=== PATIENT | female | born 2000 | race Caucasian/White ===

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

== ENCOUNTER → 2024-05-03 12:34 | Outpatient (BNVA) | payer OTHER, SELFPAY | PROVIDERS: Visit Provider Physician Assistant Medical | DX: S63.501A Unspecified sprain of right wrist, initial encounter (principal); S80.02XA Contusion of left knee, initial encounter; W01.0XXA Fall on same level from slipping, tripping and stumbling without subsequent striking against object, initial encounter | CPT/HCPCS: 73110; 73130; 73564; 99203 ==

== ENCOUNTER → 2024-05-10 15:19 | Outpatient (BNVA) | payer OTHER, SELFPAY | PROVIDERS: Visit Provider Physician Assistant Medical | DX: S63.501A Unspecified sprain of right wrist, initial encounter (principal); W01.0XXA Fall on same level from slipping, tripping and stumbling without subsequent striking against object, initial encounter | CPT/HCPCS: 99213 ==

== ENCOUNTER 2024-05-27 19:50 | Outpatient (REF) | payer OTHER, SELFPAY ==
--- NOTE | ~2024-05-27 | MR_ITS ---
EXAMINATION: MR WRIST WITHOUT CONTRAST, RIGHT CLINICAL INFORMATION: Right wrist pain. Reduced range of motion. Numbness. Injury on 05/01/2024. COMPARISON: Right hand and wrist radiographs dated 05/03/2024. TECHNIQUE: MRI of the wrist was performed using routine sequences on a high-field scanner. FINDINGS: TRIANGULAR FIBROCARTILAGE: Intact. INTRINSIC LIGAMENTS: Focal full-thickness tear through the scaphoid attachment of the scapholunate ligament measuring 0.1 cm in ML dimension. Mild joint space widening measuring up to 0.3 cm in mL dimension. Intact lunotriquetral ligament. TENDONS/MEDIAN NERVE: Mild extensor carpi ulnaris tendinosis. No transverse tendon tear or tendon retraction. Unremarkable median nerve. ARTICULAR CARTILAGE/BONE: Degenerative cystic change within the volar aspect of the capitate. No acute fracture or dislocation. No concerning lytic or blastic osseous lesion. JOINT FLUID/SOFT TISSUES: Within normal limits. MR/MR wrist RT wo con IMPRESSION: 1. Full-thickness tear through the scaphoid attachment of the scapholunate ligament with mild joint space widening. 2. Mild extensor carpi ulnaris tendinosis without a transverse tendon tear or tendon retraction. 3. Degenerative cystic change within the volar aspect of the capitate. No acute fracture or dislocation. Electronically signed by: Aaron Silva MD 06/08/2024 01:30 PM [facility]
== END 2024-05-27 19:51 | disposition home or self-care (01) ==
LOC: HO.MRI 19:50
PROVIDERS: Visit Provider Internal Medicine
DX: S69.91XA Unspecified injury of right wrist, hand and finger(s), initial encounter (principal)
CPT/HCPCS: 73221

== ENCOUNTER → 2024-05-31 15:06 | Outpatient (BNVA) | payer OTHER, SELFPAY | PROVIDERS: Visit Provider Physician Assistant Medical | DX: S63.501D Unspecified sprain of right wrist, subsequent encounter (principal); S80.02XD Contusion of left knee, subsequent encounter; W01.0XXD Fall on same level from slipping, tripping and stumbling without subsequent striking against object, subsequent encounter | CPT/HCPCS: 99213 ==

== ENCOUNTER 2024-06-13 12:24 | Outpatient (REF) | payer OTHER, SELFPAY | END 2024-06-13 12:25 | disposition home or self-care (01) | LOC: HO.HOSX 12:24 | PROVIDERS: Visit Provider Orthopaedic Surgery | DX: Z13.89 Encounter for screening for other disorder (principal) ==

== ENCOUNTER 2024-06-14 09:03 | Outpatient (AMB) | payer OTHER, SELFPAY ==
--- NOTE | 2024-06-14 09:05 | A.OFFVIS_ITS ---
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 States she slipped on a puddle of water at work, landed on her right hand. Seen at work connection same day where xrays were taken and was given a brace. Currently states she has wear the brace at all time. She also had an MRI that showed torn ligament and a fracture as per patient. Denies numbness or tingling or locking of any finger. 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 She fell while at work and landed on her outstretched wrist. She was seen by work connections who ordered the MRI and referred here. She denies any pain and says her pain has significantly improved with time. She says she was given a wrist brace to wear, which she says she has been wearing constantly throughout the day. She denies any numbness or tingling. 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 She has been working light duty at her job since her injury. 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/ right hand Review of Systems Const All systems reviewed & are unremarkable except as noted in HPI and below Physical Exam Vital Signs: BMI result Body Mass Index 56.7 Const General: cooperative, healthy appearing and no acute distress Orientation/consciousness: patient oriented x3 HEENT Head: Yes normocephalic and Yes atraumatic Eyes EOM: EOMs intact bilaterally Resp Effort & Inspection: normal respiratory effort and able to speak in complete sentences Cardio Jugular venous distension: no JVD Skin General skin exam: turgor normal Rashes: no rashes Neuro General: patient oriented x3 Extrem Other: Evaluation of Right Upper Extremity: The patient is alert, oriented, and in no acute distress Neuro: Median, Ulnar, Radial nerves motor and sensory intact and sensation is normal to the tips of all digits Vascular: Cap refill brisk ROM: She can make a tight fist with good strength and no pain and extend all her digits Full & symmetrical pronosupination Nearly symmetrical wrist flexion & extension, lacking perhaps ~10 degrees of wrist flexion in the right wrist Negative scaphoid shift test No tenderness over the scaphoid tubercle, or scapholunate interval Skin: No lacerations or abrasions. General: No Ecchymosis. No Erythema or evidence of infection. No wrist swelling Radiographs: 3 views of the right wrist + a scaphoid view were taken and viewed by me today in clinic. They show no fractures or dislocations. On the pencil-admissions assistant view the SL interval measures 3.6mm, compared to 3mm on the left, uninjured wrist. Right wrist scapholunate angle of 50 degrees. MR/MR wrist RT wo con FINDINGS: TRIANGULAR FIBROCARTILAGE: Intact. INTRINSIC LIGAMENTS: Focal full-thickness tear through the scaphoid attachment of the scapholunate ligament measuring 0.1 cm in ML dimension. Mild joint space widening measuring up to 0.3 cm in mL dimension. Intact lunotriquetral ligament. TENDONS/MEDIAN NERVE: Mild extensor carpi ulnaris tendinosis. No transverse tendon tear or tendon retraction. Unremarkable median nerve. ARTICULAR CARTILAGE/BONE: Degenerative cystic change within the volar aspect of the capitate. No acute fracture or dislocation. No concerning lytic or blastic osseous lesion. JOINT FLUID/SOFT TISSUES: Within normal limits. IMPRESSION: 1. Full-thickness tear through the scaphoid attachment of the scapholunate ligament with mild joint space widening. 2. Mild extensor carpi ulnaris tendinosis without a transverse tendon tear or tendon retraction. 3. Degenerative cystic change within the volar aspect of the capitate. No acute fracture or dislocation. Electronically signed by: Aaron Silva MD 06/08/2024 Psych Appearance: grossly normal Affect: normal affect Attitude: cooperative Assessment & Plan Assessment & Plan (1) Right scapholunate ligament tear: Code(s): S63.8X1A - Sprain of other part of right wrist and hand, initial encounter Category: Medical Plan Assessment & Plan: 1. Right partial scapholunate ligament tear, From a fall, DOI: 05/03/24 This is a work-related injury Measuring 1 mm on MRI, negative scaphoid shift test I educated her about this condition I discussed operative and non-operative treatment options At this point in time, I am hesitant to proceed with surgery I recommend activity modification, and she is in agreement I discussed activity modification, she is to lift nothing heavier than a cellphone for the next 4 weeks She should continue to wear her velcro wrist brace with daily activities for the next 4 weeks She was given a note for work to return on light duty, with a 2lb weight limit with her RUE for the next 4 weeks She will follow up in 4 weeks to see how she is doing. At that point I may consider ordered a repeat MRI with contrast to assess for any changes. I will reach out and speak with Dr. Silva, the radiologist, for their opinion concerning the MRI results and if a repeat may be warranted. Please note that greater than 45 minutes was spent with this patient going over the history, evaluating the patient and radiographs, formulating possible treatment options, discussing them with the patient, and documenting the visit. Scribed for Jaqueline Rock MD by Daniel Piper, medical administrative specialist, on 06/14/24 at 9:45 AM, EST. Orders: Orders XR wrist RT w scaphoid 06/14/24 M25.531 - Pain in right wrist Coding Level of Care Code New Pt Level 4 (86843) Diagnoses Right scapholunate ligament tear S63.8X1A
[2024-06-14 09:22] VITALS: BMI 56.7
== END 2024-06-14 10:19 | disposition home or self-care (01) ==
PROVIDERS: Visit Provider Orthopaedic Surgery
DX: S63.8X1A Sprain of other part of right wrist and hand, initial encounter (principal)
CPT/HCPCS: 99204

== ENCOUNTER 2024-06-14 09:03 | Outpatient (REF) | payer OTHER, SELFPAY ==
--- NOTE | ~2024-06-14 | XR_ITS ---
EXAMINATION: XR WRIST RIGHT CLINICAL INFORMATION: Pain in right wrist M25.531. COMPARISON: XR Right hand wrist 05/03/2024 TECHNIQUE: PA, lateral, and oblique views of the right wrist. Single scaphoid view of the left wrist FINDINGS: The bones and soft tissues are normal. No fracture. Alignment is anatomic with normal joint spaces. No erosions or abnormal soft tissue calcifications. XR/XR wrist RT w scaphoid IMPRESSION: No fracture. Electronically signed by: Wili Clark MD 07/26/2024 12:51 PM [facility]
== END 2024-06-14 09:04 | disposition home or self-care (01) ==
LOC: HO.HOSX 09:03
PROVIDERS: Visit Provider Orthopaedic Surgery
DX: M25.531 Pain in right wrist (principal); S63.8X1A Sprain of other part of right wrist and hand, initial encounter
CPT/HCPCS: 73110; 99202

== ENCOUNTER 2024-07-12 10:32 | Outpatient (AMB) | payer OTHER, SELFPAY ==
--- NOTE | 2024-07-12 11:00 | A.OFFVIS_ITS ---
Vital Signs 07/12/24 11:01 Height 5 ft 1 in Weight 300 lb BMI 56.7 Intake Visit Reasons: OV- WC RT scaphoid ligament tear DOI 04/624 Intake Note: Vidal 24 yr old right hand dominant male presents today for a follow up visit to discuss if surgical intervention is needed for her W/C right scaphoid ligament tear DOI 04/624. States she continue to wear her velcro wrist brace with daily activities. At her last visit she was given a work note to return on light duty, with a 2lb weight limit with her RUE for the next 4 weeks. STates 2 days ago she felt an increase of pain while brushing her hair. Allergies No Known Allergies Allergy (Verified 07/12/24 11:11) HPI HPI OV- WC RT scaphoid ligament tear DOI 04/624: Details: Vidal is a 24 year old right hand dominant woman who presents for an MRI review of her right wrist sprain, DOI: 05/03/24. She fell while at work and landed on her outstretched wrist. She says she recently felt an increase in wrist pain a few days ago when brushing her hair. She says that pain resolved by the next morning. Otherwise, she has been doing well She has been wearing her wrist brace wearing constantly throughout the day, as instructed She denies any numbness or tingling. 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 She has been working light duty at her job since her injury. 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/ right hand Physical Exam Vital Signs: BMI result Body Mass Index 56.7 Extrem Other: Evaluation of Right Upper Extremity: The patient is alert, oriented, and in no acute distress Neuro: Median, Ulnar, Radial nerves motor and sensory intact and sensation is normal to the tips of all digits Vascular: Cap refill brisk ROM: She can make a tight fist with good strength and no pain and extend all her digits Full & symmetrical pronosupination Nearly symmetrical wrist flexion & extension, lacking perhaps ~10 degrees of wrist flexion in the right wrist Negative scaphoid shift test again today No tenderness over the scaphoid tubercle, or scapholunate interval Radiographs: A new pencil associate automation engineer view of the right wrist was taken and viewed by me today in clinic. They show no fractures or dislocations. On the pencil-associate automation engineer view the SL interval measures 3.4mm, compared to 3mm on the left, uninjured wrist. Right wrist scapholunate angle of 50 degrees. I called and spoke with Dr. Silva today, and conferred with him about the nature of the 1 mm defect in the scapholunate ligament. He confirmed this is more like a pinhole perforation and did not see any avulsion of the ligament or evidence of joint instability. He also measured ~3.3-3.4mm of the scapholunate interval. Please see MRI report below MR/MR wrist RT wo con FINDINGS: TRIANGULAR FIBROCARTILAGE: Intact. INTRINSIC LIGAMENTS: Focal full-thickness tear through the scaphoid attachment of the scapholunate ligament measuring 0.1 cm in ML dimension. Mild joint space widening measuring up to 0.3 cm in mL dimension. Intact lunotriquetral ligament. TENDONS/MEDIAN NERVE: Mild extensor carpi ulnaris tendinosis. No transverse tendon tear or tendon retraction. Unremarkable median nerve. ARTICULAR CARTILAGE/BONE: Degenerative cystic change within the volar aspect of the capitate. No acute fracture or dislocation. No concerning lytic or blastic osseous lesion. JOINT FLUID/SOFT TISSUES: Within normal limits. IMPRESSION: 1. Full-thickness tear through the scaphoid attachment of the scapholunate ligament with mild joint space widening. 2. Mild extensor carpi ulnaris tendinosis without a transverse tendon tear or tendon retraction. 3. Degenerative cystic change within the volar aspect of the capitate. No acute fracture or dislocation. Electronically signed by: Aaron Silva MD 06/08/2024 Assessment & Plan Assessment & Plan (1) Right scapholunate ligament tear: Code(s): S63.8X1A - Sprain of other part of right wrist and hand, initial encounter Category: Medical Plan Assessment & Plan: 1. Right partial scapholunate ligament tear, From a fall, DOI: 05/03/24 This is a work-related injury Measuring 1mm on MRI, negative scaphoid shift test, no evidence of instability radiographically or clinically Again, I confirmed with the radiologist that this is felt to be a pinhole perforation that allowed for fluid to pass into the midcarpal joint, but no detachment of the ligament and no evidence of instability was seen. I educated her about this condition At this point in time, she is doing well and surgery is not necessary.. I recommend activity modification, and she is in agreement. She is able to begin using her hand for normal activities at this time. She should still be mindful of heavy lifting for the next few weeks if possible She will discontinue her wrist splint at this time. After talking with her about her work-related duties, She was given a note for work to return to full duty, without restrictions, effective 07/18/24. She was in agreement with this plan. She can follow up prn Scribed for Jaqueline Rock MD by Daniel Piper, clinical laboratory medical director, on 07/12/24 at 11:25 AM, EST. Orders: Orders XR wrist RT w scaphoid Today M25.531 - Pain in right wrist Coding Level of Care Code Est Pt Level 4 (83516) Diagnoses Right scapholunate ligament tear S63.8X1A
[2024-07-12 11:01] VITALS: BMI 56.7
== END 2024-07-12 11:58 | disposition home or self-care (01) ==
PROVIDERS: Visit Provider Orthopaedic Surgery
DX: S63.8X1A Sprain of other part of right wrist and hand, initial encounter (principal)
CPT/HCPCS: 99214

== ENCOUNTER 2024-07-12 10:32 | Outpatient (REF) | payer OTHER, SELFPAY ==
--- NOTE | ~2024-07-12 | XR_ITS ---
EXAMINATION: XR WRIST NAVICULAR RIGHT HISTORY: M25.531 - Pain in right wrist COMPARISON: Comparison is made with the prior examination dated 06/14/2024. FINDINGS: Three views of the right wrist and a pencil in flight crew member view of both wrists are submitted. Osseous mineralization is normal. There is no fracture or dislocation. There is widening of the scapholunate joint of the right wrist when compared to the left. No joint space narrowing is seen. The soft tissues are unremarkable. XR/XR wrist RT w scaphoid IMPRESSION: Widening of the right scapholunate joint compatible with ligamentous injury. Electronically signed by: Wili Clay MD 07/13/2024 09:30 AM EST
== END 2024-07-12 10:33 | disposition home or self-care (01) ==
LOC: HO.HOSX 10:32
PROVIDERS: Visit Provider Orthopaedic Surgery
DX: S63.8X1A Sprain of other part of right wrist and hand, initial encounter (principal); M25.531 Pain in right wrist
CPT/HCPCS: 73110; 99212

== ENCOUNTER 2024-08-15 08:53 | Emergency (ER) | payer OTHER, SELFPAY ==
--- NOTE | 2024-08-15 | ECG_ITS ---
Test Reason : sob Blood Pressure : */* mmHG Vent. Rate : 100 BPM Atrial Rate : 100 BPM P-R Int : 134 ms QRS Dur : 80 ms QT Int : 356 ms P-R-T Axes : 43 8 17 degrees QTcB Int : 459 ms Normal sinus rhythm Normal ECG No previous ECGs available Referred By: Generic ED Physician Electronically Signed By: LUCA PFEIFFER
--- NOTE | ~2024-08-15 | XR_ITS ---
EXAMINATION: XR CHEST CLINICAL INFORMATION: cough COMPARISON: None available. TECHNIQUE: Frontal view of the chest was obtained. FINDINGS: The cardiac, hilar, and mediastinal contours are normal. The lungs are clear bilaterally. No pneumothorax or effusion. No focal osseous or soft tissue abnormality. XR/XR chest 1V IMPRESSION: Normal chest. Electronically signed by: Hayden Sorenson MD 08/15/2024 09:20 AM [facility]
[2024-08-15 09:02] VITALS: BP 136/91; PULSE 106; RESP 20; TEMP 36.9; O2SAT 96; BMI 59.4
[2024-08-15 09:31] LABS: MANUAL DIFF FLAG NO
[2024-08-15 09:32] LABS: Basophils Percent Auto 0.3 % (0-2); Eosinophils Absolute Auto 0.1 X10*3/uL (0.0-0.4); Eosinophils Percent Auto 0.9 % (0-4); Hematocrit 44.8 % (37.0-47.0); Hemoglobin 15.1 g/dl (12.0-16.0); Imm Gran Abs Auto 0.01 X10*3/uL (0.00-0.03); Imm Gran Pct Auto 0.1 % (0.0-0.4); Lymphocytes Absolute Auto 1.2 X10*3/uL (1.2-4.9); Lymphocytes Percent Auto 17.1 % (20-40); Mean Corpuscular HGB Conc 33.7 g/dl (31.0-35.0); Mean Corpuscular Hemoglobin 29.2 pg (27.0-33.0); Mean Corpuscular Volume 86.5 fL (80.0-98.0); Mean Platelet Volume 10.7 fL (9.4-12.3); Monocytes Absolute Auto 0.5 X10*3/uL (0.1-1.2); Monocytes Percent Auto 6.8 % (2-11); Neutrophils Absolute Auto 5.2 x10*3/uL (2.0-8.3); Neutrophils Percent Auto 74.8 % (45-73); Platelet Count 221 X10*3/uL (160-400); Red Blood Count 5.18 X10*6/uL (4.20-5.50); Red Cell Distribution Width 12.7 % (11.0-16.0); White Blood Count 6.9 X10*3/uL (4.8-10.8)
[2024-08-15 09:50] LABS: Alanine Aminotransferase 22 U/L (0-31); Albumin Level 3.9 g/dL (3.5-5.0); Alkaline Phosphatase 115 U/L (39-117); Anion Gap 12 (12-20); Aspartate Amino Transferase 26 U/L (5-31); Bilirubin Direct 0.1 mg/dL (0.0-0.5); Bilirubin Total 0.3 mg/dL (0.0-1.0); Blood Urea Nitrogen 8 mg/dL (9-16); Calcium 9.1 mg/dL (8.4-10.2); Carbon Dioxide 23 mmol/L (22-29); Chloride 109 mmol/L (96-108); Creatinine Clr Calc Pharmacy 169.1; Estimated Glomerular Filt Rate > 60; Glucose Random 101 mg/dL (60-115); Lipase 19 U/L (8-78); Potassium 3.9 mmol/L (3.3-5.1); Sodium 140 mmol/L (135-145); Total Protein 8.4 g/dL (6.5-8.0)
[2024-08-15 09:58] LABS: Troponin-I High Sensitivity < 2.7 ng/L (<3.5-17.0)
[2024-08-15 10:17] LABS: Influenza A PCR POSITIVE (Negative); Influenza B PCR NEGATIVE (Negative); Resp Syncy Virus RNA Qual PCR NEGATIVE (Negative); SARS COV2 PCR INHOUSE NEGATIVE (Negative)
--- NOTE | 2024-08-15 11:05 | ED.GENADULT ---
HPI - General Adult General Chief complaint: Upper Respiratory Symptoms Stated complaint: Chest pain, SOB, cough Time Seen by Provider: 08/15/24 11:05 History of Present Illness ED Provider: Dr. 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 She denies: syncope, abdominal pain. Related Data Home Medications ?Medication ?Instructions ?Recorded ?Confirmed No Known Home Meds 07/12/24 07/12/24 Allergies Allergy/AdvReac Type Severity Reaction Status Date / Time No Known Allergies Allergy Verified 08/15/24 09:05 Review of Systems Review of Systems: Yes all other systems are reviewed and are negative PMFSH Past Medical History Attestation statement: The following information was validated with the patient. 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/ right hand Physical Exam ED Vital Signs: Vital Signs - 24 hr 08/15/24 09:02 08/15/24 12:08 Temperature 98.5 F Pulse Rate 106 H Respiratory Rate 20 Blood Pressure 136/91 H Pulse Oximetry 96 96 Oxygen Delivery Method Room Air Room Air BMI result Body Mass Index 59.4 Patient is afebrile, mildly tachycardic, and normotensive Const General: cooperative and no acute distress HENMT Head: Yes normal to inspection and Yes atraumatic Eyes General: appearance normal, both eyes and all related structures Pupils: Equal, round and reactive pupils present EOM: EOMs intact bilaterally Neck Neck: Yes normal visual inspection, Yes full ROM, Yes supple and No tender Chest Chest palpation & inspection: normal inspection of the chest and normal palpation of entire chest wall Resp Effort & Inspection: normal respiratory effort, able to speak in complete sentences, Actively coughing and no respiratory distress Auscultation: clear to auscultation bilaterally Cardio Rate: regular rate Rhythm: regular rhythm Peripheral pulses: Peripheral pulses 2+ throughout GI Inspection: Yes normal to inspection, No Abdominal wall edema and No distended Palpation (GI): Soft to palpation, not firm, nontender, no guarding and not rigid Auscultation: normal bowel sounds Back/Spine/Pelvis Back: No back tenderness Neuro Cranial nerves: Yes Equal, round and reactive pupils present Course Course Course Narrative: Patient is afebrile, mildly tachycardic, and normotensive. Reviewed work up initiated in triage. Labs notable for: No leukocytosis Negative troponin. Influenza A positive. CXR without focal infiltrate. D-dimer is negative, low suspicion for pulmonary emboli. Plan: Discharge to home with PCP follow up Return precautions given Medical Decision Making Lab Data 08/15/24 09:23 08/15/24 09:22 Labs: Lab Results 08/15/24 08/15/24 08/15/24 Range/Units 09:22 09:23 12:29 WBC 6.9 (4.8-10.8) X10*3/uL RBC 5.18 (4.20-5.50) X10*6/uL Hgb 15.1 (12.0-16.0) g/dl Hct 44.8 (37.0-47.0) % MCV 86.5 (80.0-98.0) fL MCH 29.2 (27.0-33.0) pg MCHC 33.7 (31.0-35.0) g/dl RDW 12.7 (11.0-16.0) % Plt Count 221 (160-400) X10*3/uL MPV 10.7 (9.4-12.3) fL Immature Gran % (Auto) 0.1 (0.0-0.4) % Neut % (Auto) 74.8 H (45-73) % Lymph % (Auto) 17.1 L (20-40) % Power % (Auto) 6.8 (2-11) % Eos % (Auto) 0.9 (0-4) % Baso % (Auto) 0.3 (0-2) % Lymph # (Auto) 1.2 (1.2-4.9) X10*3/uL Power # (Auto) 0.5 (0.1-1.2) X10*3/uL Eos # (Auto) 0.1 (0.0-0.4) X10*3/uL Baso # (Auto) 0.0 (0.0-0.2) X10*3/uL Abs Immat Gran (auto) 0.01 (0.00-0.03) X10*3/uL Absolute Neuts (auto) 5.2 (2.0-8.3) x10*3/uL Absolute Nucleated RBC 0.000 (0.0-0.012) X10*3/uL Nucleated RBC % (auto) 0.0 (0.0-0.2) /100WBC D-Dimer High Sensitivty 201 NG/ML Sodium 140 (135-145) mmol/L Potassium 3.9 (3.3-5.1) mmol/L Chloride 109 H (96-108) mmol/L Carbon Dioxide 23 (22-29) mmol/L Anion Gap 12 (12-20) BUN 8 L (9-16) mg/dL Creatinine 0.70 (0.5-1.4) mg/dL Estim Creat Clear Calc 169.1 Estimated GFR > 60 Random Glucose 101 (60-115) mg/dL Calcium 9.1 (8.4-10.2) mg/dL Total Bilirubin 0.3 (0.0-1.0) mg/dL Direct Bilirubin 0.1 (0.0-0.5) mg/dL AST 26 (5-31) U/L ALT 22 (0-31) U/L Alkaline Phosphatase 115 (39-117) U/L Troponin I High Sens < 2.7 (<3.5-17.0) ng/L Total Protein 8.4 H (6.5-8.0) g/dL Albumin 3.9 (3.5-5.0) g/dL Lipase 19 (8-78) U/L Beta HCG, Quant < 2 mIU/mL Influenza Type A (PCR) POSITIVE A (Negative) Influenza Type B (PCR) NEGATIVE (Negative) RSV RNA Qual (PCR) NEGATIVE (Negative) SARS-CoV-2 RNA (RT-PCR) NEGATIVE (Negative) Independent Interpretation I performed an independent interpretation of an: EKG Interpretation: NSR 100BPM without ischemic changes Radiology Impression Discussion of test interpretation with radiology: I have reviewed the radiologist's reading. Radiologist Impression: EXAMINATION: XR CHEST CLINICAL INFORMATION: cough COMPARISON: None available. TECHNIQUE: Frontal view of the chest was obtained. FINDINGS: The cardiac, hilar, and mediastinal contours are normal. The lungs are clear bilaterally. No pneumothorax or effusion. No focal osseous or soft tissue abnormality. XR/XR chest 1V IMPRESSION: Normal chest. Electronically signed by: Hayden Sorenson MD 08/15/2024 09:20 AM [facility] Discharge Plan Discharge Clinical Impression: Influenza Patient Disposition: Home, Self-Care Instructions: Influenza (ED) Additional Instructions: Please follow up with your PCP within the next 1 - 2 days for re-evaluation. Focus on fluids, rest, and tylenol as needed for aches/pains. Return to the emergency department for worsening chest pain or difficulty breathing. Prescriptions: No Action No Known Home Meds Print Language: Indian
[2024-08-15 12:01] LABS: HCG Quantitative < 2 mIU/mL
[2024-08-15 12:08] VITALS: O2SAT 96
[2024-08-15 12:45] LABS: D Dimer High Sensitivity 201 NG/ML
[2024-08-15 13:20] VITALS: BP 130/86; PULSE 82; RESP 19; TEMP 37.6; O2SAT 96
[2024-08-15] MEDS: Acetaminophen 325 MG TABLET 975 MG PO (13:22)
== END 2024-08-15 13:20 | disposition home or self-care (01) ==
PROVIDERS: Emergency Provider Emergency Medicine
DX: J10.1 Influenza due to other identified influenza virus with other respiratory manifestations (principal); R06.02 Shortness of breath; R05.9 Cough, unspecified; Z03.818 Encounter for observation for suspected exposure to other biological agents ruled out
CPT/HCPCS: 0241U; 36415; 71045; 80048; 80076; 83690; 84484; 84702; 85025; 85379; 93005; 99283; 99284

== ENCOUNTER → 2024-08-15 09:00 | Outpatient (BNV) | payer OTHER, SELFPAY | PROVIDERS: Emergency Provider Emergency Medicine; Visit Provider Internal Medicine | DX: R06.02 Shortness of breath (principal) | CPT/HCPCS: 93010 ==

== ENCOUNTER → 2024-08-15 09:07 | Outpatient (BNV) | payer OTHER, SELFPAY | PROVIDERS: Visit Provider Radiology Diagnostic Radiology | DX: R05.9 Cough, unspecified (principal) | CPT/HCPCS: 71045 ==

== ENCOUNTER 2025-03-16 20:11 | Emergency (ER) | payer SELFPAY ==
[2025-03-16 20:29] VITALS: BP 141/93; PULSE 91; RESP 18; TEMP 36.6; O2SAT 97; BMI 51.0
--- NOTE | 2025-03-16 21:35 | ED.EAR ---
HPI - Ear Problem General Chief complaint: Ear Problems Stated complaint: Right ear pain more than a day Time Seen by Provider: 03/16/25 21:05 Source: patient, RN notes reviewed and old records reviewed Mode of arrival: ambulatory Limitations: no limitations History of Present Illness ED Provider: Annamarie Peterson PA-C HPI Narrative: Patient reports to the emergency department tonight for evaluation of right-sided ear pain sent bothering her for the last 2 weeks intermittently. She reports muffled hearing and popping. She has not had any fevers chills or sweats. She reports having chronic sinusitis she does use a nasal spray she had been waiting to see ear nose and throat. Denies any respiratory symptoms no complete hearing loss no tinnitus dizziness or headaches. No ear trauma. It all started after she use Q-tips in her ears about 2 weeks ago. MD Complaint: ear pain Related Data Previous Rx's ?Medication ?Instructions ?Recorded ciprofloxacin 0.3 %-dexamethasone 4 drp otic (ears) BID 7 days #7.5 03/16/25 0.1 % ear drops,suspension mL Allergies Allergy/AdvReac Type Severity Reaction Status Date / Time No Known Allergies Allergy Verified 03/16/25 20:33 Review of Systems Review of Systems: Yes all other systems are reviewed and are negative PMFSH Past Medical History Attestation statement: The following information was validated with the patient. 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 No septic or ill-appearing. Vitals reviewed normal, PMH/Social and Surgical hx reviewed including allergies and current medications. - reviewed for prior visits here Head: Normocephalic, no obvious trauma or skin lesions noted. Eyes: EOMI, conjunctiva and sclera clear ENMT: moist oral mucosa, uvula is midline no trismus, bilateral tympanic membranes are intact chronic advanced serous 0 mm bilaterally. Right ear canal is mildly edematous and erythematous no discharge no mastoid pinna or tragal tenderness hearing intact, boggy nasal turbinates bilaterally Neck: trachea midline, no lymphadneopathy Cardiovascular: peripheral perfusion normal, Regular heart rate, regular rhythm Respiratory: no respiratory distress, lungs clear Abdomen: nondistended, obese Extremities: warm and moving without difficulty Psych: Cooperative Neuro: Alert and oriented. Vital Signs: Vital Signs: Last Vital Signs Temp 98.8 F 03/16/25 22:00 Pulse 92 03/16/25 22:00 Resp 16 03/16/25 22:00 BP 140/96 H 03/16/25 22:00 Pulse Ox 100 03/16/25 22:00 O2 Del Method Room Air 03/16/25 22:00 BMI result Body Mass Index 51.0 Medical Decision Making Medical Decision Making MDM Narrative: Exam and history are most consistent with Otitis Externa macerated epithelial cells, canal is erythematous and edematous, TM intact, also has chronic serous OM noted b/l likely secondary to allergic rhinitis, discussed both. No diabetes, immunosuppression. Low suspicion for mastoiditis, malignant otitis externa, AOM, herpes. Rx: CiproDex for inflammatory relief and infection control. Will refer to ENT. Disposition: Discharge home. SRP discussed. Advise follow up with primary care provider within 24-48 hours. Differential Diagnosis Differential Diagnoses: The differential diagnosis associated with the presentation includes see MDM Admission/Observation Consideration of admission/observation: Escalation of care including admission/observation considered Tests considered The following testing was considered but not selected: Would have considered CT of mastoid process if there was clinical concern for this. Prescription Management I considered prescription management with: Antibiotic Discharge Plan Discharge Clinical Impression: Acute otitis externa of right ear, Allergic rhinitis Patient Disposition: Home, Self-Care Instructions: Swimmer's Ear (ED), Allergies (ED) Additional Instructions: You have an outer ear infection. Please use the drops as prescribed You MUST keep the ear dry until your treatment is done and your symptoms are completely resolved. Use a cotton ball in the ear while showering. If your symptoms are worsening please be re-evaluated. Take Tylenol and/or Motrin as needed for pain. Prescriptions: New ciprofloxacin-dexamethasone 0.3-0.1 % drops,suspension 4 drp otic (ears) BID 7 Days Qty: 7.5 0RF Rx Instructions: apply in right ear Referrals: CT Ears, Nose, Throat [place] [Outside] Interventions: ED Discharge Assessment Last Done: 03/16/25 22:00 Discharge Date/Time: 03/16/25 22:01 Print Language: Occitan
[2025-03-16 21:47] VITALS: BP 140/96; PULSE 92; RESP 16; TEMP 37.1; O2SAT 100
--- OUTSIDE RECORDS SUMMARY | 2025-03-16 21:54 | XMS_ITS | Clinical Summary ---
Author Organization [facility] Address [address] [place] [id number] Phone Care Team Providers Care Information Technology Internship Name Role Phone Pcp, Unknown Primary Care Provider Unavailabl e Allergies No known active allergies Medications fluticasone propionate (FLONASE) 50 mcg/actuation nasal spray 1 spray by Nasal route daily. 9.9 mL 08/12/2023 Active Social History Tobacco Use Types Packs/Day Years Used Date Smoking Tobacco: Never Passive Smoke Exposure: Never Tobacco Cessation:Counseling Given: Not Answered Alcohol Use Standard Drinks/Week Comments Yes 0 (1 standard drink = 0.6 oz pur e alcohol) social Education Answer Date Recorded Are you interested in more education? Not on floresita e 08/12/2023 Are you concerned about learning? Not on file 08/12/2023 No 08/12/2023 No 08/12/2023 Digital Access Answer Date Recorded No 08/12/2023 No 08/12/2023 Reliable internet access at home? Not on file 08/12/2023 Device with a working camera? Not on file Intimate Partner Violence Answer Date R ecorded Are you denied basic needs s uch as food, clothing, or medical care? No 08/12/2023 In the past 12 months have y ou been in a relationship with a person who hurts, threatens, or tries to control you? No 08/12/2023 Are you denied basic needs s uch as food, clothing, or medical care? No 08/12/2023 In the past 12 months have y ou been in a relationship with a person who hurts, threatens, or tries to control you? No 08/12/2023 Comments No Sex and Gender Information Value Date Recorded Sex Assigned at Female 08/12/2023 7:36 PM EST Legal Sex Female 6:49 PM EST Gender Identity Female 08/12/2023 7:36 PM EST Sexual Orientation Straight 08/12/2023 7: 36 PM EST Last Filed Vital Signs Vital Sign Reading Time Taken Comments Blood Pressure 122/84 08/12/2023 10:36 PM EST Pulse 79 08/12/2023 10:36 PM EST Temperature 37.1 C (98.8 F) 08/12/2023 10:36 PM EST Respiratory Rate 16 08/12/2023 10:36 PM EST Oxygen Saturation 98% 08/12/2023 10:36 PM EST Inhaled Oxygen Concentration - - Weight 122.5 kg (270 lb) 08/12/2023 7:31 PM EST Height 154.9 cm (5' 1 ) 08/12/2023 7:31 PM EST Body Mass Index 51.02 08/12/2023 7:31 PM EST Plan of Treatment Health Maintenance Due Date Last Done Comments Adult Td,Tdap Booster 2001 DEPRESSION SCREENING 2013 SMOKING Hx and SMOKELESS TOB ACCO SCREENING 2014 HPV VACCINES (1 - 3-dose series) 2016 CHLAMYDIA SCREENING 2017 MENINGOCOCCAL VACCINES (B) ( 1 of 2 - Standard) 2017 HEPATITIS C SCREENING 2019 HIV ONE-TIME SCREENING (18-6 5 YEARS) 2019 PAP SMEAR 2022 INFLUENZA VACCINE (#1) 2025 COVID-19 VACCINE (2023-2 5 season) 2025 HEPATITIS A VACCINES Aged Out No long er eligible based on patient's age to complete this topic HIB VACCINES Aged Out No longer eligi ble based on patient's age to complete this topic MENINGOCOCCAL VACCINES (ACWY) Aged Out No longer eligible based on patient's age to complete this topic PNEUMOCOCCAL VACCINES (0-49 years) Aged Out No longer eligible based on patient's age to complete this topic Medical Devices Not on file Insurance [facility] [address] [id number] [place] [address] [id number] [facility] Care Teams Information Technology Internship Relationship Specialty Start Date End Date Pcp, Unknown PCP - General 08/12/23 Additional Source Comments The information contained in this document represents components of the legal health record. It is not the complete legal health record.[facility]
[2025-03-16 22:00] VITALS: BP 140/96; PULSE 92; RESP 16; TEMP 37.1; O2SAT 100
== END 2025-03-16 22:01 | disposition home or self-care (01) ==
PROVIDERS: Emergency Provider Emergency Medicine Emergency Medical Services; PCP Internal Medicine
DX: H60.501 Unspecified acute noninfective otitis externa, right ear (principal); J30.9 Allergic rhinitis, unspecified
CPT/HCPCS: 99283

== ENCOUNTER 2025-06-06 13:16 | Emergency (ER) | payer OTHER, SELFPAY ==
--- NOTE | ~2025-06-06 | XR_ITS ---
EXAMINATION: XR WRIST 3 OR MORE VIEWS LEFT, XR HAND 3 OR MORE VIEWS LEFT HISTORY: pain COMPARISON: There are no prior studies available for comparison. FINDINGS: Seven views of the hand and wrist including a scaphoid view are submitted. Osseous mineralization is normal. There is no fracture or dislocation. The joint spaces are preserved. The soft tissues are unremarkable. XR/XR hand LT min 3V IMPRESSION: Unremarkable examination of the left hand and wrist. Electronically signed by: Wili lCay MD 06/06/2025 02:19 PM [facility]
--- NOTE | ~2025-06-06 | XR_ITS ---
EXAMINATION: XR WRIST 3 OR MORE VIEWS LEFT, XR HAND 3 OR MORE VIEWS LEFT HISTORY: pain COMPARISON: There are no prior studies available for comparison. FINDINGS: Seven views of the hand and wrist including a scaphoid view are submitted. Osseous mineralization is normal. There is no fracture or dislocation. The joint spaces are preserved. The soft tissues are unremarkable. XR/XR wrist LT min 3V IMPRESSION: Unremarkable examination of the left hand and wrist. Electronically signed by: Wili Clay MD 06/06/2025 02:19 PM [facility]
[2025-06-06 13:36] VITALS: BP 154/91; PULSE 87; RESP 20; TEMP 36.1; O2SAT 99; BMI 63.3
--- NOTE | 2025-06-06 13:36 | ED_ITS ---
HPI - Extremity Injury (Upper) General Chief Complaint: Extremity Injury, Upper Stated Complaint: hand pain Time Seen by Provider: 06/06/25 14:28 Source: patient Mode of arrival: ambulatory Limitations: no limitations History of Present Illness ED Provider: Tanisha Parra PA-C HPI narrative: Patient is a 25 year old assigned female at with no reported medical history presenting to the emergency department today with left wrist pain. Patient states that she has had pain in the left wrist over the last 2 days. Patient states that nothing helps and movement makes it worse. Patient denies any trauma. Patient denies any other complaints at this time. Related Data Previous Rx's ?Medication ?Instructions ?Recorded ciprofloxacin 0.3 %-dexamethasone 4 drp otic (ears) BI D 7 days #7.5 03/16/25 0.1 % ear drops,suspension mL Allergies Allergy/AdvReac Type Severity Reaction Status Date / Time No Known Allergies Allergy Verified 06/06/25 13:38 Review of Systems Constitutional: Constitutional: Reports as per HPI Eyes: Eyes: Reports as per HPI ENT: Reports as per HPI Cardiovascular: Cardiovascular: Reports as per HPI Respiratory: Respiratory: Reports as per HPI Gastrointestinal: Gastrointestinal: Reports as per HPI Genitourinary: Genitourinary: Reports as per HPI Musculoskeletal: Musculoskeletal: Reports as per HPI Integumentary/Breasts: Skin/Breast: Reports as per HPI Neurologic: Reports as per HPI Psychiatric: Psychiatric: Reports as per HPI Endocrine: Endocrine: Reports as per HPI Hematologic/Lymphatic: Hematologic/Lymphatic: Reports as per HPI Allergic/Immunologic: Allergic/Immunologic: Reports as per HPI [facility] Past Medical History Attestation statement: The following information was validated with the patient. 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 Physical Exam Vital Signs: Vital Signs: Last Vital Signs Temp 97.0 F 06/06/25 14:39 Pulse 87 06/06/25 14:39 Resp 20 06/06/25 14:39 BP 154/91 H 06/06/25 14:39 Pulse Ox 99 06/06/25 14:39 BMI result Body Mass Index 63.3 Const: General: cooperative, no acute distress, alert and awake Nutritional Appearance: well nourished Orientation/consciousness: patient oriented x3 HEENT: Head: Yes normal to inspection and Yes atraumatic Ears: hearing grossly normal bilaterally and external ears normal General nose exam: Normal external nose present, no nasal discharge noted and no epistaxis Face and sinus: Yes normal facial exam, No abrasion and No laceration Mouth: Normal oral and palatal mucosa present, no drooling and no muffled voice Eyes: General: appearance normal, both eyes and all related structures Periorbital: periorbital findings normal Eyelids: Yes eyelids normal Conjunctivae: conjunctivae normal Pupils: Equal, round and reactive pupils present EOM: EOMs intact bilaterally Neck: Neck: Yes normal visual inspection and Yes full ROM Resp: Effort & Inspection: normal respiratory effort and able to speak in complete sentences Neuro: General: patient oriented x3, moves all extremities and CN's II-XI intact bilaterally Cranial nerves: Yes Equal, round and reactive pupils present Cognition (Neuro): normal cognition Extrem: Other: pain with left wrist ROM positive left sided phalen's test General: Yes normal to inspection, Yes full ROM and Yes capillary refill normal Psych: Appearance: grossly normal Mental Status: mental status grossly normal Affect: normal affect Attitude: cooperative Thought process: Normal thought process present Thought content: Normal thought content present Insight: Good insight present (Psych) Course Course Course Narrative: This is an RME: Additional HPI, ROS, PE not included below will be deferred to primary provider. RME assessment and note performed by: Katie Jasso PA-C This is a 88-female who presents to the ER with a complaint of left w rist pain. No known injury or trauma. Plan: xray, further ER eval needed Medical Decision Making Medical Decision Making MDM Narrative: Patient is a 25 year old assigned female at with no reported medical history presenting to the emergency department today with left wrist pain. Patient's physical exam was as noted in the physical exam portion of this note and consistent with left sided carpal tunnel Patient's left wrist and hand x-rays showed no acute process. I explained my physical exam findings as well as all test results to the patient. I answered all questions asked by the patient. Patient's left wrist was placed in a velcro volar splint, without incident. Patient's PMS was intact prior to and after splint placement. I stressed the importance of the patient taking her medication as directed (either prescribed or as the over the counter packaging recommends). I stressed the importance of the patient following up with her primary care provider and the orthopedic team. I stressed the importance of the patient returning to the emergency department immediately if her symptoms were to worsen or if she were to develop any dizziness, shortness of breath, difficulty breathing, chest pain, blurry vision, loss of vision, nausea, vomiting, abdominal pain, fever, chills, back pain, or any other complaints. Patient verbalized agreement and understanding with this treatment plan and discharge. Differential Diagnosis Differential Diagnoses: The differential diagnosis associated with the presentation includes Carpal tunnel syndrome Wrist pain Wrist sprain Admission/Observation Consideration of admission/observation: Escalation of care including admission/observation considered Patient would have been admitted to the hospital had her work up had any findings where hospital admission was appropriate and her clinical presentation warranted hospital admission. Independent Interpretation I performed an independent interpretation of an: Plain X-Ray Interpretation: My interpretation is in agreement with the radiologist's impression of these imaging studies as written below. Reason for Exam: pain EXAMINATION: XR WRIST 3 OR MORE VIEWS LEFT, XR HAND 3 OR MORE VIEWS LEFT HISTORY: pain COMPARISON: There are no prior studies available for comparison. FINDINGS: Seven views of the hand and wrist including a scaphoid view are submitted. Osseous mineralization is normal. There is no fracture or dislocation. The joint spaces are preserved. The soft tissues are unremarkable. XR/XR wrist LT min 3V IMPRESSION: Unremarkable examination of the left hand and wrist. Electronically signed by: Wili Clay MD 06/06/2025 02:19 PM [facility] Dictated By: Wili Clay MD Signed By: Electronically signed by Wili Clay MD 06/06/25 1419 Reason for Exam: pain EXAMINATION: XR WRIST 3 OR MORE VIEWS LEFT, XR HAND 3 OR MORE VIEWS LEFT HISTORY: pain COMPARISON: There are no prior studies available for comparison. FINDINGS: Seven views of the hand and wrist including a scaphoid view are submitted. Osseous mineralization is normal. There is no fracture or dislocation. The joint spaces are preserved. The soft tissues are unremarkable. XR/XR hand LT min 3V IMPRESSION: Unremarkable examination of the left hand and wrist. Electronically signed by: Wili Clay MD 06/06/2025 02:19 PM EST Dictated By: Wili Clay MD Signed By: Electronically signed by Wili Clay MD 06/06/25 1419 Radiology Impression Discussion of test interpretation with radiology: I have reviewed the radiologist's reading. Procedures Orthopedic Splinting/Casting L wrist: Side: left Upper Extremity Injury Location: wrist Upper Extremity Immobilizer: volar splint Discharge Plan Discharge Clinical Impression: Carpal tunnel syndrome Qualifiers: Laterality: left Qualified Code(s): G56.02 - Carpal tunnel syndrome, left upper limb Patient Disposition: Home, Self-Care Instructions: Carpal Tunnel Syndrome (DC) Additional Instructions: Your left wrist x-ray showed no acute process. I am suspicious that you have carpal tunnel of the left wrist. You can remove the wrist splint to shower and as you tolerate. Be sure to follow up with the orthopedic team. IF you are prescribed home medications and/or you are taking over the counter medications at home - it is very important you continue to do so as prescribed / directed unless told otherwise by a healthcare provider. Follow up with your primary care provider. Do your best to stay well hydrated and rest. Return to the emergency department immediately if your symptoms worsen or if you develop any numbness, tingling, dizziness, shortness of breath, difficulty breat [place], chest pain, blurry vision, loss of vision, nausea, vomiting, abdominal pain, fever, chills, back pain, or any other complaints. Please see the information below about our Patient Portal. If you are not yet enrolled in the [facility] Patient Portal, you will receive an enrollment email invitation following your visit to any [facility] care setting. You may also self-enroll in the Patient Portal by visiting our website: [email or web address] The following information is required to access the Patient Portal: - Your [facility] Medical Record Number - Your personal home email address (must match what is in your electronic medical record, Registration staff can assist with this) - Name - Date of Capabilities of the Patient Portal: - Message some providers - View upcoming appointments - Access your health summary, medical history, and visit history - View current conditions and allergies - View procedure and lab results - View your medications, including guidelines, side effects, and precautions - Complete pre-appointment questionnaires requested by your provider - Ready summary reports of your office visits and procedures To access the Patient Portal Mobile Mill[employer], follow these directions: - Search [email or web address] in the Millicent Store or Google Play Store - Download the Millicent - Search for [facility] - Enter your login/password Prescriptions: No Action ciprofloxacin-dexamethasone 0.3-0.1 % drops,suspension 4 drp otic (ears) BID 7 Days Qty: 7.5 0RF Rx Instructions: apply in right ear Referrals: [facility] Orthopedic Surgeons [Provider Group] Referral Note: Pepper to establish and follow up with the orthopedic team. Gabbie Short MD [Primary Care Provider, Internal Medicine] Stand Alone Forms: Work/School Release Interventions: ED Discharge Assessment Last Done: 06/06/25 14:39 Discharge Date/Time: 06/06/25 14:40 Print Language: Prydeinig
[2025-06-06 14:39] VITALS: BP 154/91; PULSE 87; RESP 20; TEMP 36.1; O2SAT 99
--- OUTSIDE RECORDS SUMMARY | 2025-06-06 22:46 | XMS_ITS | Clinical Summary ---
Author Organization [facility] Address [address] [place] [phone] Phone Care Team Providers Care Tax Compliance Representative Name Role Phone Pcp, Unknown Primary Care [...] 2022 INFLUENZA VACCINE (#1) 2025 COVID-19 VACCINE ( - 2024-2 6 season) 2025 HEPATITIS A VACCINES Aged Out [...] topic Medical Devices Not on file Insurance [facility] [address] [address] [place] [address] [address] [facility] Care Teams Tax Compliance Representative Relationship Specialty Start Date End Date Pcp, Unknown PCP - General 08/12/23 Additional Source Comments The information contained in this document represents components of the legal health record. It is not the complete legal health record.[facility]
== END 2025-06-06 14:40 | disposition home or self-care (01) ==
PROVIDERS: Emergency Provider Emergency Medicine; PCP Internal Medicine
DX: G56.02 Carpal tunnel syndrome, left upper limb (principal); M25.532 Pain in left wrist
CPT/HCPCS: 73110; 73130; 99283

== ENCOUNTER → 2025-06-06 13:39 | Outpatient (BNV) | payer SELFPAY | PROVIDERS: Emergency Provider Emergency Medicine; PCP Internal Medicine; Visit Provider Radiology Diagnostic Radiology | DX: M25.532 Pain in left wrist (principal); M79.642 Pain in left hand | CPT/HCPCS: 73110; 73130 ==